=== PATIENT | female | born 1950 | race Caucasian/White ===

== ENCOUNTER 2016-11-15 05:08 | Day surgery (SDC) | payer MEDICARE, BC ==
[~2016-11-15 05:08] MED LIST: ACET500CAP PO; B COMPLETE PO; BEN25 PO; CALTRA600D PO; COLCRYS0.6 MG PO; COMBIPATCH TD; COMP5B PO; ENDOMETRIN100 MG VA; FISH-EPA1000 MG PO; HEMOCYTE324 MG PO; HYDROCHLOROT25 MG PO; IRON OTC PO; JUICE PLUS PO; KLOR-CON 1010 MEQ PO; KLOR-CON 88 MEQ PO; L40 PO; LIOR10 PO; METHOC500B PO; NEUR300 PO; NEUR800 PO; P5 PO; PCET PO; PLAQ200B PO; PREDNISOL5 PO; PREDNISONE2.5 MG PO; ULTRAM50 PO; VITAMIN B-121000 MC1 SL; VITAMIN D1000 UNI1 PO; Z100 PO; [UNRECOGNIZED DRUG - REMARK] SQ
== END 2016-11-15 23:59 | disposition home health service (06) ==
LOC: SDC 05:08
PROVIDERS: Orthopaedic Surgery
PROC: B01BZZZ Fluoroscopy of Spinal Cord (ICD-10-PCS; 2016-11-15)
PROC: 3E0R33Z Introduction of Anti-inflammatory into Spinal Canal, Percutaneous Approach (ICD-10-PCS; principal; 2016-11-15 07:15)
DX: M54.16 Radiculopathy, lumbar region (principal); M32.9 Systemic lupus erythematosus, unspecified; D64.9 Anemia, unspecified; Z90.49 Acquired absence of other specified parts of digestive tract; Z90.710 Acquired absence of both cervix and uterus; Z98.890 Other specified postprocedural states; M19.90 Unspecified osteoarthritis, unspecified site; G47.30 Sleep apnea, unspecified; Z99.81 Dependence on supplemental oxygen
CPT/HCPCS: J1040; J2250; J2405; J3010; Q9967

== ENCOUNTER 2016-12-20 05:03 | Day surgery (SDC) | payer MEDICARE, BC | END 2016-12-20 09:21 | disposition home or self-care (01) | LOC: SDC 05:03 | PROVIDERS: Orthopaedic Surgery | PROC: 3E0S3BZ Introduction of Anesthetic Agent into Epidural Space, Percutaneous Approach (ICD-10-PCS; 2016-12-20) | PROC: 3E0S33Z Introduction of Anti-inflammatory into Epidural Space, Percutaneous Approach (ICD-10-PCS; principal; 2016-12-20 07:45) | DX: M54.16 Radiculopathy, lumbar region (principal); Z90.49 Acquired absence of other specified parts of digestive tract; Z98.41 Cataract extraction status, right eye; Z98.42 Cataract extraction status, left eye; Z96.1 Presence of intraocular lens; Z98.890 Other specified postprocedural states; M35.00 Sjogren syndrome, unspecified; D64.9 Anemia, unspecified; Z90.710 Acquired absence of both cervix and uterus; M41.9 Scoliosis, unspecified; M10.9 Gout, unspecified; Z98.84 Bariatric surgery status; G47.33 Obstructive sleep apnea (adult) (pediatric); M19.90 Unspecified osteoarthritis, unspecified site; Z88.1 Allergy status to other antibiotic agents; Z88.8 Allergy status to other drugs, medicaments and biological substances; Z79.899 Other long term (current) drug therapy | CPT/HCPCS: J1040; J2250; J2405; J3010; Q9967 ==